=== PATIENT | male | born 1955 | race Caucasian/White ===

== ENCOUNTER 2021-02-16 16:41 | Inpatient (IN) ==
[2021-02-16] MEDS ORDERED: DILTIAZEM 25 MG/5 ML VIAL IV ONE (16:55)
[2021-02-16] MEDS ORDERED: ASPIRIN 325 MG ENTERIC COATED TABLET PO ONE (16:56)
[2021-02-16] MEDS ORDERED: DILTIAZEM 125 MG in DEXTROSE 5% IN WATER 100 ML IV SCH (17:00)
--- NOTE | 2021-02-16 18:11 | Emergency Department Note ---
HPI General Chief complaint: Arrhythmia/Palpitations Stated complaint: a-flutter Time Seen by Provider: 02/16/21 16:55 Source: patient Mode of arrival: ambulatory Limitations: no limitations History of Present Illness HPI Narrative: Patient is a 65-year-old gentleman who arrives emergency department by private vehicle complaining of neck and cardia. History is provided by the patient. He has been having vomiting diarrhea fever and chills for the past few days. He had initially presented to our emergency department earlier this afternoon and was found to have influenza A and rapid atrial fibrillation. His heart rate improved with IV diltiazem he remained in atrial fibrillation. His symptoms had improved with IV fluids. I had recommended admission to the hospital at that time of the patient had matters at home he had to attend to so he briefly went home and then decided to return for admission. His symptoms have not significantly changed since leaving the hospital Related Data Home Medications Medication Instructions Recorded Confirmed blood sugar diagnostic #10 each 11/02/18 02/16/21 aspirin 81 mg chewable tablet See Rx Instructions PO .COMPLEX 03/25/20 02/16/21 atorvastatin 40 mg tablet See Rx Instructions PO .COMPLEX 03/25/20 02/16/21 glucose 4 gram chewable tablet See Rx Instructions PO .COMPLEX PRN 03/25/20 02/16/21 metformin 500 mg tablet,extended See Rx Instructions PO .COMPLEX 03/25/20 02/16/21 release 24 hr tab naproxen 250 mg tablet See Rx Instructions PO .COMPLEX 03/25/20 02/16/21 PRN tab saxagliptin 2.5 mg tablet See Rx Instructions PO .COMPLEX 03/25/20 02/16/21 Allergies Allergy/AdvReac Type Severity Reaction Status Date / Time guaifenesin [From Robitussin] AdvReac Nausea Verified 02/16/21 16:44 nicotine patch Allergy Unknown Unknown Uncoded 11/20/18 09:40 Review of Systems ROS ROS Narrative: Narrative: PFSH Narrative Patient History Narrative: Narrative: Medical/Surgical/Family History All Active Problems (Updated 02/16/21 @ 18:11 by Shaan Sibley DO) Influenza A (Acute) Atrial fibrillation (Acute) Nausea & vomiting (Acute) Exposure to COVID-19 virus (Acute) Other chronic pain (Chronic) Other cervical disc degeneration, mid-cervical region, unspecified level (Chron ic) Radiculopathy, cervical region (Chronic) Contusion (Acute) Allergic reaction (Acute) Bee sting (Acute) Well adult (Chronic) Neck pain (Chronic) Benign hypertension (Chronic) Diabetes (Chronic) PTSD (post-traumatic stress disorder) (Chronic) Reactive depression (Chronic) Obesity (Chronic) Bursitis of shoulder (Chronic) Vitamin D deficiency (Chronic) Erectile dysfunction (Chronic) Impacted cerumen (Chronic) Back pain (Chronic) Adjustment disorder with depressed mood (Chronic) Tobacco use (Chronic) Other urethral stricture, male, unspecified site (Chronic) Urethral stricture (Chronic) Foot sprain (Chronic) Medical History Adjustment disorder with depressed mood Back pain Benign hypertension Bursitis of shoulder Diabetes Erectile dysfunction Impacted cerumen Neck pain 01/07/14 MRI- Multi-level degenerative OA Obesity Other cervical disc degeneration, mid-cervical region, unspecified level Other chronic pain Other urethral stricture, male, unspecified site PTSD (post-traumatic stress disorder) Radiculopathy, cervical region Reactive depression Tobacco use Urethral stricture at distal aspect of the urethra Vitamin D deficiency Well adult Surgical History H/O colonoscopy 2009 Mucosal lymphoid aggregate - polyp of colon; Recheck in 10 years H/O dilation of urethra History of shoulder surgery History of surgery BERNICE #1 w/cath, w/o sed 12/24/19 BERNICE #1 w/cath w/o sed 07/19/2018 BERNICE #2 w/cath, w/o sed 03/15/2017 BERNICE #1 w/cath, w/o sed 02/21/2017 Family History Mother Diabetes Heart attack Father Heart attack Other No pertinent family history Social History Smoking Status: Current every day smoker Alcohol Intake Frequency: does not drink Substance Use: does not use Exam Narrative Narrative: Gen -patient is awake and alert and in no acute distress. HEENT -head is atraumatic. There is no conjunctival pallor or scleral icterus. CV -S1-S2 tachycardic and irregularly irregular. Peripheral pulses are palpable Resp -breathing is nonlabored. Lungs are clear to auscultation bilaterally. There is no cyanosis. Derm -skin is warm and dry. MSK -present extremities are atraumatic. Psych -patient has appropriate affect. Neuro -patient answers questions appropriately with fluent speech. Patient moves all present extremities equally. General Limitations: no limitations Course Vital Signs Vital signs: Vital Signs Temperature 98.2 F 02/16/21 16:42 Pulse Rate 83 02/16/21 16:42 Respiratory Rate 20 02/16/21 16:42 Blood Pressure 121/71 02/16/21 16:42 Pulse Oximetry (%) 96 02/16/21 16:42 Temperature 98.2 F 02/16/21 16:42 Pulse Rate 84 02/16/21 17:31 Respiratory Rate 31 H 02/16/21 17:31 Blood Pressure 123/111 02/16/21 17:31 Pulse Oximetry (%) 96 02/16/21 17:31 MDM MDM Narrative Medical decision making narrative: Patient presents with rapid atrial fibrillation. He has already been volume resuscitated and is otherwise quite well in appearance. He is agreeable with plan for admission. I discussed the patient's history examination and diagnostic findings with Dr. Brewster, who agrees with the plan of care and accepts admission. He requested a chest x-ray prior to admission Critical care time I provided at least 5 minutes of critical care time. This was separate from any separately billable procedures. The patient was given IV diltiazem which was titrated to his heart rate. The patient was closely monitored for response to treatment and stability of vital signs throughout their emergency department stay. Discharge Plan Patient/Caregiver Discharge Instructions Pt seen by CORPORATE ACCOUNTANT/PA only: No Clinical Impression: Influenza A, Atrial fibrillation Patient Disposition: Xfer As Inpt ([facility]) Condition: Fair Follow up with: Ankit Mcgill ARNP [Primary Care Provider] - Prescriptions: No Action (DME) Accu-Chek Melissa Plus test strp strip See Dose Instructions appful .ROUTE .MEDSUPPLY Qty: 10 RF: 0 atorvastatin 40 mg tablet See Rx Instructions PO .COMPLEX RF: 0 glucose 4 gram tablet,chewable See Rx Instructions PO .COMPLEX PRN (Reason: Hypoglycemia) RF: 0 saxagliptin 2.5 mg tablet See Rx Instructions PO .COMPLEX RF: 0 naproxen 250 mg tablet See Rx Instructions PO .COMPLEX PRN (Reason: Inflammation) RF: 0 metformin 500 mg tablet extended release 24 hr See Rx Instructions PO .COMPLEX RF: 0 aspirin 81 mg tablet,chewable See Rx Instructions PO .COMPLEX RF: 0
[2021-02-16] MEDS ORDERED: METOPROLOL TARTRATE 5 MG/5 ML VIAL IV PRN (19:22)
[2021-02-16] MEDS ORDERED: MAGNESIUM SULFATE 2 GM/50 ML BAG IV PRN (19:22)
[2021-02-16] MEDS ORDERED: ACETAMINOPHEN 650 MG/65 ML BAG IV PRN (19:22)
[2021-02-16] MEDS ORDERED: ACETAMINOPHEN 325 MG TABLET PO PRN (19:22)
[2021-02-16] MEDS ORDERED: ONDANSETRON 4 MG/2 ML VIAL IV PRN (19:22)
[2021-02-16] MEDS ORDERED: POTASSIUM CHLORIDE 40 MEQ in DEXTROSE 5% IN WATER 500 ML IV PRN (19:22)
[2021-02-16] MEDS ORDERED: POLYETHYLENE GLYCOL 3350 17 GM PACKET PO PRN (19:22)
[2021-02-16] MEDS ORDERED: ONDANSETRON 4 MG ODT TABLET SL PRN (19:22)
[2021-02-16] MEDS ORDERED: MELATONIN 3 MG TABLET PO PRN (19:22)
[2021-02-16] MEDS ORDERED: guaiFENesin/CODEINE 10 ML UDC PO PRN (19:22)
[2021-02-16] MEDS ORDERED: 0.9 % SODIUM CHLORIDE 1,000 ML IV SCH (19:22)
[2021-02-16] MEDS ORDERED: BISACODYL 10 MG SUPP.RECT PR PRN (19:22)
[2021-02-16] MEDS ORDERED: DILTIAZEM 125 MG in 0.9 % SODIUM CHLORIDE 100 ML IV SCH (19:22)
--- NOTE | 2021-02-16 19:58 | Internal Med History&Physical ---
HPI History of Present Illness Patient information: Note initiated : 02/16/21 at 7:57 pm Service Date, if different from initiated Date: [] Patient: Edwar Montez a 65 y/o M admitted on 02/16/21 for a-flutter. Chief Complaint: Weakness/diarrhea History of present illness: Mr. Montez is a 65 year old M with history of hyperlipidemia/DM type II and morbid obesity who presents to the ER with nausea vomiting and diarrhea since last 48 hours. Patient has been feeling weak and fatigued and has not been able to take care of himself. Endorses associated fever and chills but denies chest pain, cough, productive sputum. He denies sick contacts. Initial work-up in the ER was consistent with influenza positive/A. fib RVR. Patient was started on diltiazem resulting in rate controlled around 120s. Patient however requested to be discharged and he had some information business at home and presented back after a couple of hours again to be in A. fib with RVR at 150s. He was subsequently started on diltiazem drip. Hospitalist service was consulted for admission. At the time of my evaluation patient is alert. Heart rate around 120s. He appears withdrawn but was able to answer most of the questions. Denies chest pain, diaphoresis, changes in medications. He denies prior similar episodes or history of atrial fibrillation. Review of systems 10 point review system was performed and is negative except for ones discussed above PFSH PFSH All Active Problems (Updated 02/16/21 @ 18:11 by Shaan Sibley DO) Influenza A (Acute) Atrial fibrillation (Acute) Nausea & vomiting (Acute) Exposure to COVID-19 virus (Acute) Other chronic pain (Chronic) Other cervical disc degeneration, mid-cervical region, unspecified level (Chronic) Radiculopathy, cervical region (Chronic) Contusion (Acute) Allergic reaction (Acute) Bee sting (Acute) Well adult (Chronic) Neck pain (Chronic) Benign hypertension (Chronic) Diabetes (Chronic) PTSD (post-traumatic stress disorder) (Chronic) Reactive depression (Chronic) Obesity (Chronic) Bursitis of shoulder (Chronic) Vitamin D deficiency (Chronic) Erectile dysfunction (Chronic) Impacted cerumen (Chronic) Back pain (Chronic) Adjustment disorder with depressed mood (Chronic) Tobacco use (Chronic) Other urethral stricture, male, unspecified site (Chronic) Urethral stricture (Chronic) Foot sprain (Chronic) Medical History Adjustment disorder with depressed mood Back pain Benign hypertension Bursitis of shoulder Diabetes Erectile dysfunction Impacted cerumen Neck pain 01/07/14 MRI- Multi-level degenerative OA Obesity Other cervical disc degeneration, mid-cervical region, unspecified level Other chronic pain Other urethral stricture, male, unspecified site PTSD (post-traumatic stress disorder) Radiculopathy, cervical region Reactive depression Tobacco use Urethral stricture at distal aspect of the urethra Vitamin D deficiency Well adult Surgical History H/O colonoscopy 2008 Mucosal lymphoid aggregate - polyp of colon; Recheck in 10 years H/O dilation of urethra History of shoulder surgery History of surgery BERNICE #1 w/cath, w/o sed 12/24/19 BERNICE #1 w/cath w/o sed 07/19/2018 BERNICE #2 w/cath, w/o sed 03/15/2017 BERNICE #1 w/cath, w/o sed 02/21/2017 Family History Mother Diabetes Heart attack Father Heart attack Other No pertinent family history Social History marital status: service: Yes ([employer] for 14 years) service: retired branch: [employer] alcohol intake frequency: does not drink substance use type: does not use MEDS/ALLERGIES Home Medications and Allergies Home Medications Medication Instructions Recorded Confirmed Type blood sugar diagnostic #10 each 11/02/18 02/16/21 History aspirin 81 mg chewable tablet See Rx Instructions PO .COMPLEX 03/25/20 02/16/21 History atorvastatin 40 mg tablet See Rx Instructions PO .COMPLEX 03/25/20 02/16/21 History glucose 4 gram chewable tablet See Rx Instructions PO .COMPLEX PRN 03/25/20 02/16/21 History metformin 500 mg tablet,extended See Rx Instructions PO .COMPLEX 03/25/20 02/16/21 History release 24 hr tab naproxen 250 mg tablet See Rx Instructions PO .COMPLEX 03/25/20 02/16/21 History PRN tab saxagliptin 2.5 mg tablet See Rx Instructions PO .COMPLEX 03/25/20 02/16/21 History Allergies Allergy/AdvReac Type Severity Reaction Status Date / Time guaifenesin [From Robitussin] AdvReac Nausea Verified 02/16/21 16:44 nicotine patch Allergy Unknown Unknown Uncoded 11/20/18 09:40 EXAM Constitutional Vitals: Temp Pulse Resp BP Pulse Ox 98.2 F 67 17 110/70 97 02/16/21 16:42 02/16/21 19:12 02/16/21 19:12 02/16/21 19:01 02/16/21 19:12 Appears withdrawn but nondistressed Head normocephalic Oral cavity moist No ear or nose discharge Eye no subconjunctival pallor, movement symmetrical S1-S2 irregular, tachycardia, A. fib on telemetry Nonlabored breathing Nondistended nontender abdomen Lower extremity no cyanosis clubbing or joint swelling Skin no suspicious lesion Psych anxious but no hallucination Neuro normal GCS 15 A/P Narrative A/P Narrative: * Acute influenza A with viral syndrome. Continue supportive treatment/Tamiflu * A. fib RVR continue diltiazem drip/rate control measures. Transition to oral AV elza blockers. Echocardiogram. * Severe weakness secondary to influenza. Continue gait and safety eval/PT OT/nutrition support and crystalloids * Diarrhea/volume depletion-likely secondary to influenza. Continue crystalloids and supportive treatment * DM type II continue sliding-scale insulin/CC diet * Prophylaxis Heparin Plan * Inpatient admission * Rate control measures * Tamiflu * Supportive treatment/crystalloid/therapies as tolerated * Discharge planning * nutrition support Time Spent With Patient Time: Total time spent is greater than 50% in coordination of care (as documented) at patient's floor/unit and/or counseling patient:
[2021-02-16] MEDS ORDERED: 0.9 % SODIUM CHLORIDE 250 ML IV SCH (20:30)
[2021-02-16] MEDS: CYANOCOBALAMIN (VITAMIN B-12) 500 MCG TABLET PO SCH (20:44)
[2021-02-16] MEDS: HEPARIN 5,000 UNIT/ML VIAL SQ SCH (20:44)
[2021-02-16] MEDS: DOCUSATE SODIUM 100 MG CAPSULE PO SCH (20:45)
[2021-02-16] MEDS ORDERED: SENNOSIDES/DOCUSATE SODIUM 1 TAB TABLET PO SCH (21:00)
[2021-02-16] MEDS ORDERED: DEXTROSE 31 GM ORAL.SUSP PO PRN (21:27)
[2021-02-16] MEDS ORDERED: DEXTROSE 50% 50 ML VIAL IV PRN (21:27)
[2021-02-16] MEDS: 0.9 % SODIUM CHLORIDE 10 ML SYRINGE IV SCH (22:33)
[2021-02-17] MEDS ORDERED: DILTIAZEM 125 MG in DEXTROSE 5% IN WATER 100 ML IV SCH (05:00)
[2021-02-17 05:27] LABS: Basophils # (Auto) 0.01 K/mcL (0.00-0.20); Basophils % (Auto) 0.1 % (0.0-2.0); Eosinophils # (Auto) 0.18 K/mcL (0.00-0.70); Eosinophils % (Auto) 2.3 % (0.0-7.0); Hematocrit 48.6 % (41.0-55.0); Lymphocytes # (Auto) 2.83 K/mcL (1.50-4.80); Lymphocytes % (Auto) 36.9 % (15.0-49.0); Mean Cell Volume 87.6 fL (80.0-100.0); Mean Corpuscular HGB Conc 32.9 g/dL (31.0-36.0); Mean Platelet Volume 9.5 fL (7.4-10.4); Monocytes # (Auto) 0.84 K/mcL (0.10-0.90); Neutrophils % (Auto) 49.7 % (38.0-78.0); Platelet Count 182 K/mcL (140-440); RBC 5.55 M/mcL (4.50-5.90); Red Cell Distribution Width 12.7 % (11.5-14.5); WBC 7.7 K/mcL (4.5-11.0)
[2021-02-17] MEDS: 0.9 % SODIUM CHLORIDE 10 ML SYRINGE IV SCH (05:57)
[2021-02-17 06:11] LABS: ALT/SGPT 11 U/L (<40); AST/SGOT 11 U/L (<40); Albumin 3.1 gm/dL (3.2-5.2); Albumin/Globulin Ratio 1.2 (1.0-2.3); Alkaline Phosphatase 63 U/L (39-117); Bilirubin,Direct < 0.2 mg/dL (0-0.3); Bilirubin,Total 0.3 mg/dL (0.1-1.0); Blood Urea Nitrogen 12 mg/dL (8-23); Calcium 8.1 mg/dL (8.6-10.4); Carbon Dioxide 23 mmol/L (22-30); Chloride 105 mmol/L (96-108); Globulin 2.6 gm/dL (2.2-3.7); Glomerular Filtration Rate 95; Glucose 185 mg/dL (70-105); Lactate Dehydrogenase 220 U/L (135-225); Phosphorous 3.1 mg/dL (2.5-4.5); Triglycerides 100 mg/dL (<150); Uric Acid 3.1 mg/dL (2.5-8.0)
[2021-02-17] MEDS ORDERED: INSULIN LISPRO 1 UNIT/0.01 ML UNIT SQ SCH (07:30)
[2021-02-17] MEDS: HEPARIN 5,000 UNIT/ML VIAL SQ SCH (08:22)
[2021-02-17] MEDS: DOCUSATE SODIUM 100 MG CAPSULE PO SCH (08:22)
[2021-02-17] MEDS: CYANOCOBALAMIN (VITAMIN B-12) 500 MCG TABLET PO SCH (08:22)
[2021-02-17] MEDS ORDERED: OSELTAMIVIR PHOSPHATE 75 MG CAPSULE PO SCH (09:00)
[2021-02-17] MEDS ORDERED: MULTIVIT,THER IRON,CA,FA & MIN 1 TABLET PO SCH (09:00)
[2021-02-17] MEDS ORDERED: THIAMINE 100 MG TABLET PO SCH (09:00)
--- NOTE | 2021-02-17 09:08 | Discharge Summary ---
Discharge Provider Provider Patient information: Note initiated : 02/17/21 at 9:04 am Service Date, if different from initiated Date: [] Patient: Edwar Montez a 65 y/o M admitted on 02/16/21 for a-flutter. Discharge diagnosis * Acute influenza A with viral syndrome. Continue supportive treatment/Tamiflu . Discharging home * A. fib RVR managed on diltiazem drip. Rate controlled and converted to sinus around early this morning. Echocardiogram pending. Fax results to PCP office. Patient feels at baseline and requesting discharge. Advised to follow-up with PCP/cardiology as outpatient. * Severe weakness secondary to influenza. Feels at baseline able to ambulate. PT eval prior to discharge * Diarrhea/volume depletion-likely secondary to influenza. Clinically resolved with crystalloids and supportive treatment. Tolerating oral fluids * DM type II continue sliding-scale insulin/CC diet Brief hospital course Mr. Montez is a 65 year old M with history of hyperlipidemia/DM type II and morbid obesity who presents to the ER with nausea vomiting and diarrhea since last 48 hours. Patient has been feeling weak and fatigued and has not been able to take care of himself. Endorses associated fever and chills but denies chest pain, cough, productive sputum. He denies sick contacts. Initial work-up in the ER was consistent with influenza positive/A. fib RVR. Patient was started on diltiazem resulting in rate controlled around 120s. Patient however requested to be discharged and he had some information business at home and presented back after a couple of hours again to be in A. fib with RVR at 150s. He was subsequently started on diltiazem drip. Hospitalist service was consulted for admission. At the time of my evaluation patient is alert. Heart rate around 120s. He appears withdrawn but was able to answer most of the questions. Denies chest pain, diaphoresis, changes in medications. He denies prior similar episodes or history of atrial fibrillation. 02/17-patient converted to sinus. Patient demonstrated dramatic improvement in clinical symptoms with resolution of A. fib RVR converting to sinus. He is able to ambulate feels a lot better and recovered faster than expected and hence being discharged at patient's request, he feels at baseline. Advised to continue Tamiflu for additional 9 doses and follow-up with PCP/cardiology as outpatient. Date of admission: 02/16/21 19:16 Discharge date: 02/17/21 Primary care physician: Ankit Mcgill Consults: 02/16/21 Consult to Physician [CONS] Stat Comment: Consulting Provider: Pranay Brewster Reason For Exam: Physician to Consult Discharge Meds Discharge Medications Home Medications blood sugar diagnostic #10 each 11/02/18 [History Confirmed 02/16/21 Last Taken Unknown] aspirin 81 mg chewable tablet See Rx Instructions PO .COMPLEX 03/25/20 [History Confirmed 02/16/21 Last Taken Unknown] atorvastatin 40 mg tablet See Rx Instructions PO .COMPLEX 03/25/20 [History Co nfirmed 02/16/21 Last Taken Unknown] glucose 4 gram chewable tablet See Rx Instructions PO .COMPLEX PRN 03/25/20 [History Confirmed 02/16/21 Last Taken Unknown] metformin 500 mg tablet,extended release 24 hr See Rx Instructions PO .COMPLEX tab 03/25/20 [History Confirmed 02/16/21 Last Taken Unknown] naproxen 250 mg tablet See Rx Instructions PO .COMPLEX PRN tab 03/25/20 [History Confirmed 02/16/21 Last Taken Unknown] saxagliptin 2.5 mg tablet See Rx Instructions PO .COMPLEX 03/25/20 [History Confirmed 02/16/21 Last Taken Unknown] oseltamivir 75 mg PO BID #9 cap 02/17/21 [Rx Last Taken Unknown] COURSE Hospital Course Hospital course: . Discharge diagnosis: A. fib RVR/influenza Time Spent with Patient Time attestation: Total time spent providing and/or coordinating discharge services: EXAM Constitutional Vitals: Temp Pulse Resp BP Pulse Ox 97.5 F 70 23 H 115/77 97 02/17/21 04:01 02/17/21 05:03 02/17/21 05:03 02/17/21 05:03 02/17/21 05:03 Discharge Data Data Completed and Pending Labs on day of discharge: Labs from last 24 hours 02/17/21 02/17/21 04:04 04:04 WBC 7.7 RBC 5.55 Hgb 16.0 Hct 48.6 MCV 87.6 MCH 28.8 MCHC 32.9 RDW 12.7 Plt Count 182 MPV 9.5 Neut % (Auto) 49.7 Lymph % (Auto) 36.9 [place] % (Auto) 11.0 Eos % (Auto) 2.3 Baso % (Auto) 0.1 Lymph # (Auto) 2.83 [place] # (Auto) 0.84 Eos # (Auto) 0.18 Baso # (Auto) 0.01 Absolute Neutrophils 3.80 Sodium 135 Potassium 3.7 Chloride 105 Carbon Dioxide 23 Anion Gap 7.0 L BUN 12 Creatinine 0.8 GFR Calculation 95 Glucose 185 H Uric Acid 3.1 Calcium 8.1 L Phosphorus 3.1 Magnesium 1.8 Total Bilirubin 0.3 Direct Bilirubin < 0.2 GGT 13 AST 11 ALT 11 Alkaline Phosphatase 63 Lactate Dehydrogenase 220 Total Protein 5.7 L Albumin 3.1 L Globulin 2.6 Albumin/Globulin Ratio 1.2 Triglycerides 100 Discharge Plan Patient/Caregiver Discharge Instructions Activity Restrictions/Additional Instructions: Please fax results of echocardiogram to PCP office Continue Tamiflu for additional 9 doses Maintain oral fluids return to ER if fever chills weakness diarrhea Prescriptions: New oseltamivir 75 mg Capsule 75 mg PO BID Qty: 9 RF: 0 Continued (DME) Accu-Chek Melissa Plus test strp strip See Dose Instructions appful .ROUTE .MEDSUPPLY Qty: 10 RF: 0 atorvastatin 40 mg tablet See Rx Instructions PO .COMPLEX RF: 0 glucose 4 gram tablet,chewable See Rx Instructions PO .COMPLEX PRN (Reason: Hypoglycemia) RF: 0 saxagliptin 2.5 mg tablet See Rx Instructions PO .COMPLEX RF: 0 naproxen 250 mg tablet See Rx Instructions PO .COMPLEX PRN (Reason: Inflammation) RF: 0 metformin 500 mg tablet extended release 24 hr See Rx Instructions PO .COMPLEX RF: 0 aspirin 81 mg tablet,chewable See Rx Instructions PO .COMPLEX RF: 0 Follow Up Plan Follow up with: Ankit Mcgill ARNP [Primary Care Provider] - Patient Disposition: Home, Self-Care Prognosis: Fair I certify that the patient requires SNF services: No Overall status at discharge: patient is progressing back to baseline Discharge Orders: Discharge Order (Routine); Ordered 02/17/21 Ordered By: Pranay Brewster
== END 2021-02-17 10:00 | disposition home or self-care (01) | DRG 866 ==
LOC: ED 16:41 → ICU 19:16
PROVIDERS: ADMIT Internal Medicine; ATTEND Internal Medicine